=== PATIENT | female | born 1985 | race Two or more races ===

== ENCOUNTER 2020-11-21 17:34 | Emergency (ER) | payer OTHER ==
[~2020-11-21] VITALS: Ht 172.7 cm; Wt 75.3 kg
[2020-11-21] MEDS ORDERED: OBTREX DHA COM1 EACH PO (17:40)
== END 2020-11-21 19:57 | disposition home or self-care (01) ==
LOC: ER 17:34
DX: O33.3XX0 Maternal care for disproportion due to outlet contraction of pelvis, not applicable or unspecified (principal); O43.891 Other placental disorders, first trimester; Z3A.12 12 weeks gestation of pregnancy

== ENCOUNTER 2021-03-11 10:12 | Outpatient (CLI) | payer OTHER ==
[~2021-03-11 10:12] MED LIST: OBTREX DHA COM1 EACH PO
== END 2021-03-11 11:07 | disposition home or self-care (01) ==
LOC: NST 10:12
PROVIDERS: ATTEND Obstetrics & Gynecology
DX: Z34.83 Encounter for supervision of other normal pregnancy, third trimester (principal)

== ENCOUNTER 2021-03-18 07:18 | Outpatient (CLI) | payer OTHER | END 2021-03-18 07:56 | disposition home or self-care (01) | LOC: NST 07:18 | PROVIDERS: ATTEND Obstetrics & Gynecology | DX: Z34.83 Encounter for supervision of other normal pregnancy, third trimester (principal) ==

== ENCOUNTER 2021-04-01 07:19 | Outpatient (CLI) | payer OTHER | END 2021-04-01 07:47 | disposition home or self-care (01) | LOC: NST 07:19 | PROVIDERS: ATTEND Obstetrics & Gynecology Maternal & Fetal Medicine | DX: Z34.83 Encounter for supervision of other normal pregnancy, third trimester (principal) ==

== ENCOUNTER 2021-05-13 07:37 | Outpatient (CLI) | payer OTHER | END 2021-05-13 09:18 | disposition home or self-care (01) | LOC: NST 07:37 | PROVIDERS: ATTEND Obstetrics & Gynecology | DX: Z34.83 Encounter for supervision of other normal pregnancy, third trimester (principal) ==

== ENCOUNTER 2021-05-15 15:00 | Inpatient (IN) | payer OTHER ==
[~2021-05-15] VITALS: Ht 172.7 cm; Wt 90.7 kg
[2021-05-28] MEDS ORDERED: PRENATAL TABLE1 EAC2 PO (08:19)
[2021-05-28] MEDS ORDERED: NIFEDIPINE ER30 M1 (11:17)
[2021-05-28] MEDS ORDERED: PROGESTERONE200 MG (11:17)
[2021-05-28] MEDS ORDERED: AZELAIC ACID50 GM (11:17)
== END 2021-05-30 12:07 | disposition home or self-care (01) | DRG 768 ==
LOC: SURG-SUITE 05-28 05:26 → LDR 05-28 05:26 → SURG-SUITE 05-28 16:14 → OB/GYN 06-04 15:00
PROVIDERS: ADMIT Obstetrics & Gynecology; ATTEND Obstetrics & Gynecology
PROC: 10E0XZZ Delivery of Products of Conception, External Approach (ICD-10-PCS; principal; 2021-05-28)
PROC: 0DQR0ZZ Repair Anal Sphincter, Open Approach (ICD-10-PCS; 2021-05-28)
PROC: 4A1HXCZ Monitoring of Products of Conception, Cardiac Rate, External Approach (ICD-10-PCS; 2021-05-28)
DX: O70.21 Third degree perineal laceration during delivery, IIIa (principal); Z37.0 Single live birth; Z20.822 Contact with and (suspected) exposure to COVID-19; Z3A.39 39 weeks gestation of pregnancy

== ENCOUNTER 2023-11-05 13:43 | Inpatient (IN) | payer OTHER ==
[~2023-11-05] VITALS: Ht 172.7 cm; Wt 88.9 kg
[~2023-11-05 13:43] MED LIST changes: +AZELAIC ACID50 GM; +NIFEDIPINE ER30 M1; +PRENATAL TABLE1 EAC2 PO; +PROGESTERONE200 MG
[2023-11-15 07:19] VITALS: BP 107/64
[2023-11-15] MEDS ORDERED: RINGERS SOLUTION,LACTATED 1,000 ML IV SCH (07:45)
[2023-11-15 08:01] LABS: HEMATOCRIT 34.1 % (36.0-45.00); HEMOGLOBIN 11.8 g/dL (12.0-15.00); MEAN CELL VOLUME 89.3 fL (80.00-100.00); MEAN CORPUSCULAR HEMOGLOBIN 30.8 pg (27.00-32.0); MEAN CORPUSCULAR HGB CONC 34.5 g/dl (32.0-36.0); PLATELET COUNT 227 K/uL (150-450); RED BLOOD COUNT 3.82 M/uL (4.00-6.00); RED CELL DISTRIBUTION WIDTH 13.9 % (11.5-14.5)
[2023-11-15] MEDS ORDERED: OXYTOCIN 20 UNITS/500ML RL PIGGYBAG IV ONE (08:02)
[2023-11-15] MEDS ORDERED: OXYTOCIN 500 ML IV ONE (08:15)
[2023-11-15 08:36] LABS: INR < 0.93; PARTIAL THROMBOPLASTIN TIME 28.1 SECONDS (22.0-34.0)
[2023-11-15 08:41] LABS: ALBUMIN 2.6 gm/dL (3.4-5.0); BILIRUBIN TOTAL 0.54 mg/dL (0.3-1.2); CALCIUM 8.6 mg/dL (8.5-10.1); CREATININE SERUM 0.44 mg/dL (0.55-1.02); GFR 161.79; GLOBULINA 3.4 G/DL (2.4-3.5); POTASSIUM 3.97 mEq/L (3.5-5.1)
[2023-11-15 11:50] VITALS: BP 114/77; O2SAT 100
[2023-11-15] MEDS ORDERED: ERYTHROMYCIN BASE OPHT 1GM EACH TUBE OP ONE ×2 (12:01→14:45)
[2023-11-15] MEDS ORDERED: CHLORHEXIDINE GLUCONATE 120 ML BOTTLE TOP ONE (12:02)
[2023-11-15] MEDS ORDERED: OXYTOCIN 20 UNITS/1000ML RL PIGGYBAG IV ONE (12:02)
[2023-11-15] MEDS ORDERED: LIDOCAINE HCL 1% 10ML VIAL ONE (12:02)
[2023-11-15] MEDS ORDERED: IBUprofen 400 MG TABLET PO PRN (14:45)
[2023-11-15] MEDS ORDERED: CHLORHEXIDINE GLUCONATE 120 ML BOTTLE TOP SCH (14:45)
[2023-11-15] MEDS ORDERED: OXYTOCIN 1,000 ML IV SCH (14:45)
[2023-11-15 16:00] VITALS: BP 125/67
[2023-11-15 18:22] VITALS: BP 102/72
[2023-11-16 00:40] VITALS: BP 104/68
[2023-11-16 07:05] LABS: HEMATOCRIT 30.1 % (36.0-45.00); HEMOGLOBIN 10.5 g/dL (12.0-15.00); MEAN CELL VOLUME 88.5 fL (80.00-100.00); MEAN CORPUSCULAR HEMOGLOBIN 30.9 pg (27.00-32.0); MEAN CORPUSCULAR HGB CONC 34.9 g/dl (32.0-36.0); PLATELET COUNT 227 K/uL (150-450)
[2023-11-16 08:57] VITALS: BP 108/71
[2023-11-16 12:58] VITALS: BP 124/78
[2023-11-16 19:34] VITALS: BP 111/74
[2023-11-17 00:30] VITALS: BP 105/72
[2023-11-17 08:45] VITALS: BP 116/75
== END 2023-11-17 10:39 | disposition home or self-care (01) | DRG 807 ==
LOC: OB/GYN 11-15 07:29 → LDR 11-15 07:29 → OB/GYN 11-15 16:48
PROVIDERS: ADMIT Obstetrics & Gynecology; ATTEND Obstetrics & Gynecology
PROC: 10E0XZZ Delivery of Products of Conception, External Approach (ICD-10-PCS; principal; 2023-11-15)
PROC: 4A1HXCZ Monitoring of Products of Conception, Cardiac Rate, External Approach (ICD-10-PCS; 2023-11-15)
DX: O80 Encounter for full-term uncomplicated delivery (principal); Z37.0 Single live birth; Z3A.39 39 weeks gestation of pregnancy; Z20.822 Contact with and (suspected) exposure to COVID-19